=== PATIENT | female | born 2000 | race African-American/Black ===

== ENCOUNTER 2021-06-06 15:24 | Emergency (ER) | payer SELFPAY ==
[2021-06-06] MEDS ORDERED: Ondansetron ODT 4 MG TAB ONE (16:17)
[2021-06-06] MEDS ORDERED: Acetaminophen 325 MG TAB ONE (16:17)
[2021-06-07 15:47] LABS: SARS-CoV-2 PCR by NAA DETECTED (NotDetected)
== END 2021-06-06 16:51 | disposition left against medical advice (07) ==
LOC: CSHERS 15:24
DX: U07.1 COVID-19 (principal)
CPT/HCPCS: 99284; Q0162; U0003; U0005

== ENCOUNTER 2024-05-29 09:09 | Emergency (ER) | payer OTHER, SELFPAY ==
[2024-05-29 09:44] LABS: Bilirubin Neg (Negative); Blood, Urine Negative (Negative); Clarity Cloudy (Clear); Glucose, Urine (Dipstick) Normal (Negative); Ketone, Urine Negative (Negative); Leukocyte 100 (Negative); Nitrite Negative (Negative); Protein, Urine (Dipstick) Negative (Neg-Trace); Specific Gravity, Urine 1.015 (1.005-1.030)
[2024-05-29 10:04] LABS: Bacteria/HPF 1+ HPF (None Seen); CAUTI Indications for Culture Pelvic or flank pain; RBC/HPF 0-3 HPF (0-3); Yeast-Budding Rare HPF (None Seen)
[2024-05-29 10:06] LABS: Urine Culture Reflex No No
== END 2024-05-29 11:15 | disposition left against medical advice (07) ==
LOC: CSHERS 09:09
DX: O99.891 Other specified diseases and conditions complicating pregnancy (principal); R10.30 Lower abdominal pain, unspecified; Z3A.16 16 weeks gestation of pregnancy
CPT/HCPCS: 36415; 76856; 81001; 84702; 93976